=== PATIENT | male | born 2000 ===

== ENCOUNTER → 2024-12-17 13:32 | Outpatient (CLI) | payer OTHER, SELFPAY ==
--- NOTE | 2024-12-17 13:38 | DI.ECHO.S_ITS ---
[facility]+ [facility] : : [address] : : [place] : : [id number] : : Phone: [phone] Echocardiogram Report + + :Name: EDDI OGDEN Study Date: 12/17/2024 Height: 74 in : :[facility] ReadingLocation: Weight: 148 lb : : Gender: Male BSA: 1.9 m2 : :: 2000 Age: 24 yrs BP: 128/79 mmHg: :Reason For Study: ISCHEMIC HEART DISEASE : :Ordering Physician: ZARA, : :SARAH Performed By: Lowell Bond : :Referring: [id number] : + + Interpretation Summary The left ventricle is normal in size.Left ventricular ejection fraction is estimated to be 55 +/- 5%. Diastolic parameters suggest probable normal left ventricular diastolic function and normal filling pressures. The right ventricle is normal in size and function. No significant valvular pathology seen for The IVC is dilated (diameter is greater than 2.1 cm) yet it collapses greater than 50% with a sniff. This suggests a right atrial pressure of 8 mm Hg. There is no pericardial effusion. Procedure: A two-dimensional transthoracic echocardiogram with color flow and Doppler was performed. The study quality was technically good. There is no prior echocardiogram noted for this patient. The patient was in normal sinus rhythm during the exam. Left Ventricle: The left ventricle is normal in size. There is normal left ventricular wall thickness. There is no thrombus. Left ventricular ejection fraction is estimated to be 55 +/- 5%. Slight septal bounce. However no other obvious features of constrictive pericarditis. Diastolic parameters suggest probable normal left ventricular diastolic function and normal filling pressures. Right Ventricle: The right ventricle is normal in size and function. Atria: The left atrial size is normal. Right atrial size is normal. There is no Doppler evidence for an interatrial shunt. Mitral Valve: The mitral valve leaflets appear normal. There is no evidence of stenosis, fluttering, or prolapse. There is no mitral regurgitation noted. Aortic Valve: The aortic valve is trileaflet. The aortic valve opens well. There is no aortic valve stenosis. No aortic regurgitation is present. Tricuspid Valve: The tricuspid valve is normal. There is trace tricuspid regurgitation. Pulmonary artery pressures cannot be estimated because of the lack of a measurable TR jet velocity. Pulmonic Valve: The pulmonic valve leaflets are thin and pliable; valve motion is normal. There is trace pulmonic regurgitation. Great Vessels: The aortic root is normal size. The dimensions of the ascending aorta are normal. The pulmonary artery is normal size. The IVC is dilated (diameter is greater than 2.1 cm) yet it collapses greater than 50% with a sniff. This suggests a right atrial pressure of 8 mm Hg. Pericardium/ Pleura There is no pericardial effusion. There is no pleural effusion. MMode/2D Measurements & Calculations LVIDd: 5.1 cm LVOT diam: 2.3 cm LVIDs: 3.1 cm Ao root diam: 3.1 cm FS: 38.6 % asc Aorta Diam: 2.8 cm EPSS: 0.39 cm IVSd: 0.68 cm LVPWd: 0.78 cm LV yang. diameter/BSA (cm/m^2): 2.7 LV sys. diameter/BSA (cm/m^2): 1.6 LA A2 area: 19.2 cm2 RA long axis: 4.0 cm LA A4 area: 19.0 cm2 RA area: 12.3 cm2 LA length (vol): 6.5 cm RA vol: 31.9 ml LA vol: 47.5 ml RA : 16.7 ml/m2 LA vol index: 24.9 ml/m2 IVC diam: 2.6 cm RVD1 (basal): 3.7 cm RVD2 (mid): 3.1 cm TAPSE: 3.0 cm Doppler Measurements & Calculations Ao V2 max: 103.8 cm/sec LVOT Max Nathaniel: 95.4 cm/sec Ao V2 mean: 80.1 cm/sec LV V1 max P.6 mmHg Ao max P.3 mmHg LV V1 VTI: 20.5 cm Ao mean P.7 mmHg VANNA(I,D): 3.7 cm2 Ao V2 VTI: 22.3 cm VNANA(V,D): 3.7 cm2 sev ratio: 0.92 VANNA indexed to BSA (cm^2/m^2): 1.9 MV E max nathaniel: 64.9 cm/sec PA V2 max: 60.6 cm/sec MV A max nathaniel: 44.1 cm/sec PA V2 mean: 45.2 cm/sec MV E/A: 1.5 PA mean P.89 mmHg Med Peak E' Nathaniel: 8.5 cm/sec PA pr(Accel): 27.6 mmHg E/E' med: 7.7 Lat Peak E' Nathaniel: 12.2 cm/sec E/E' lat: 5.3 E/e' average: 6.5 MV dec time: 0.21 sec SVLVOT): 81.8 ml Reading Physician:01:11 PM
== END ==
PROVIDERS: Referring Provider Physician Assistant; Visit Provider Physician Assistant
DX: I25.9 Chronic ischemic heart disease, unspecified (principal)
CPT/HCPCS: 93306